=== PATIENT | female | born 1985 | race African-American/Black ===

== ENCOUNTER 2017-11-07 03:13 | Inpatient (IN) | payer OTHER, MEDICARE ==
[~2017-11-07] VITALS: Ht 154.9 cm; Wt 137.0 kg
[~2017-11-07 03:13] MED LIST: ADVAIR 100-501 EACH INH; ADVAIR DISKUS 21 DSK INH; AMBIEN 10MG10 MG PO; AMITRIPTYLINE50 MG PO; ATROVENT HFA12.9 GM INH; B12 1MG PE1000 MCG/M IM; BUTRANS20 MCG/HR TOP; CYCLOBENZAPRINE10 MG PO; DOK100 MG PO; FOLIC ACID1 M1 PO; HYDROXYCHLOROQ200 MG PO; LINZESS290 MCG PO; METHOTREXATE; NAPROXEN500 MG PO; OXYCODONE HCL5 MG PO; OXYCODONE HYDRO10 M1 PO; PLAQUENIL200 M1 PO; PREDNISONE10 MG PO; PROTONIX 40MG T40 MG PO; RASUVO25 MG/0.5 SC; REMICADE I100 MG/10 IV; SAVELLA 50MG50 MG PO; SINGULAIR10 MG PO; VITAMIN D50000 IU PO; ZOLOFT50 M1 PO
--- NOTE | 2017-11-07 17:09 | Operative Report ---
Operative/Inv Procedure Report Surgery Date: 11/07/17 Name of Procedure: Attempted laparoscopy failed secondary to body habitus Pre-Operative Diagnosis: Pelvic pain Post-Operative Diagnosis: Same adhesions Estimated Blood Loss: 500 Surgeon/Outsole Scheduler: Goldie Lam MD Anesthesia: general endotracheal tube Operative/Procedure Note Note: Patient was taken to the operating room placed in supine position. After adequate induction of general anesthesia via endotracheal the abdomen was prepped and draped sterile fashion. The vagina was prepped and draped so fashion Fowler was placed. 2 spongeS were placed into the vagina. The surgeon regowned and gloved. At the level of the umbilicus MC was made to allow for the entry of the Veress needle. M was insufflated approximately 2-1/2 L of CO2 is a question of liver attached on the secondary to the patient's morbid obesity. The Veress needle was removed and a 10 mm trocar was inserted atraumatically at this point bleeding was noted the scope was placed we're above the fascia. No air came through the port. The decision was made to extend the incision at the umbilicus remove the port checked the fascia probably about 100 mL of bleeding at this point we converted to exploratory laparotomy to look for the source of bleeding. The incision at the umbilicus was closed using 0 the fascia and 3 of the skin hemostasis was apparent. At this point him patient was places supine position she was prepped and draped in sterile fashion again sponges were removed from the vagina Fowler remained in the bladder. Through the old Pfannenstiel skin incision skin was cut was carried down to rectus fascia was cut in curvilinear fashion direction using curved Chauhan patient tolerated that well. At this point the peritoneum was entered high retractors were placed there were adhesions from the bowel to the peritoneum these were lysed bluntly as well as sharply the ovaries were examined and found to be normal without cysts peritoneal washings were obtained there was no blood in the abdomen the abdomen was irrigated copious claire once again with patient in different positions up Trendelenburg reverse Trendelenburg hemostasis was apparent advanced into the abdomen peritoneum was reapproximated 0 phosphorus replacement to continue sutures #1 subcutaneous tissue was reapproximated using 0 skin was approximated sofie at the end of the case the counts correct patient was awakened from anesthesia and transferred recovery room awake alert for Findings: Bowel adhesions to the peritoneum small bowel normal left ovary into our no other adnexal masses otherwise normal anatomy
[2017-11-07 19:04] VITALS: BP 120/70
[2017-11-07 21:03] VITALS: BP 118/70
[2017-11-07 23:00] VITALS: BP 118/72
[2017-11-08] VITALS (7 sets, daily range): BP systolic 110–128; BP diastolic 56–74
[2017-11-08 09:30] LABS: ABSOLUTE BASOPHIL COUNT 0 /CUMM (0.0-0.2); ABSOLUTE EOSINOPHIL COUNT 0 /CUMM (0.0-0.7); ABSOLUTE LYMPH COUNT 1.5 /CUMM (1.2-3.4); EOSINOPHIL % 0 % (0-5); MEAN PLATELET VOLUME 7.6 FL (7.4-10.4); RBC DISTRIBUTION WIDTH 15.2 % (11.5-14.5)
[2017-11-08 09:57] LABS: ABSOLUTE GRANULOCYTE CT 12.4 /CUMM (1.4-6.5); ABSOLUTE MONOCYTE COUNT 0.6 /CUMM (0.10-0.60); BASOPHIL % 0.1 % (0.0-2.0); HEMATOCRIT 32.7 % (37-47); MEAN CORPUSCULAR HGB 30.8 PG (27.0-31.0); MEAN CORPUSCULAR HGB CONC 33.8 G/DL (33.0-37.0); MEAN CORPUSCULAR VOLUME 91.2 FL (81.0-99.0); PLATELET COUNT 303 /CUMM (130-400); RED BLOOD CELL CT 3.58 /CUMM (4.20-5.40)
[2017-11-08] MEDS ORDERED: PERCOCET 5-3251 EACH PO (09:59)
[2017-11-08 10:02] LABS: WHITE BLOOD CELL COUNT 14.5 /CUMM (4.8-10.8)
[2017-11-08 10:42] LABS: GRANULOCYTE % 85.3 % (42.2-75.2)
[2017-11-08] MEDS ORDERED: HYDROMORPHONE HC2 M1 PO (12:21)
[2017-11-09 06:16] VITALS: BP 128/68
--- NOTE | 2017-11-09 10:58 | PN- OBGYN ---
Surgical Brief Attending Note Brief Attending Note: Seen and evaluated Denies nausea Denies vomiting States pain okay with current medication Ambulating without assistance Vitals as per record Aox3 Lungs clear Abdomen soft and +bowel sounds Wound intact with sofie (phannensteil) and umbilicus intact. Extremities. Negative homans. Neuro grossly intact upper and lower extremities Urine culture negative WBC 14. A/p Pod#2 s/p LSC converted to Exlap for pelvic pain/adhesions. Pain mgmt strategies reviewed. Recommend abdominal binder. Changed from percocet to dilaudid as needed. Tolerating diet VTE risk reduction with ambulation Wound care instructions reviewed. Follow up for staple removal one week with Dr Lam .
== END 2017-11-09 12:54 | DRG 336 ==
LOC: STS 03:13 → PACUH 17:04 → 2NB 17:04 → ENRESERV 17:26 → ENTRNSPT 18:51 → 2NB 19:06 → CMPTRNSPT 19:17 → ENPENDDIS 11-08 10:02 → EDPENDDISDT 11-09 10:02 → 2NB 11-09 12:54
PROVIDERS: Specialist
PROC: 0WJG4ZZ Inspection of Peritoneal Cavity, Percutaneous Endoscopic Approach (ICD-10-PCS; principal; 2017-11-07)
PROC: 0DN80ZZ Release Small Intestine, Open Approach (ICD-10-PCS; 2017-11-07)
DX: K66.0 Peritoneal adhesions (postprocedural) (postinfection) (principal); Z68.43 Body mass index [BMI] 50.0-59.9, adult; E66.01 Morbid (severe) obesity due to excess calories; R10.2 Pelvic and perineal pain; Z98.84 Bariatric surgery status; Z53.31 Laparoscopic surgical procedure converted to open procedure
CPT/HCPCS: 2NBSP; 36415; 87086; C9399; J0131; J1170; J1200; J1650; J1885; J2405